=== PATIENT | female | born 1990 | race American Indian/Alaskan Native ===

== ENCOUNTER 2020-07-26 16:05 | Emergency (ER) | payer OTHER ==
[2020-07-26] MEDS ORDERED: IBUPROFEN 800 MG TAB ONE (17:09)
[2020-07-26] MEDS ORDERED: BALANCED SALT IRRIG (BSS) OPHTH SOLN 15 ML ONE ×2 (17:15→17:18)
[2020-07-26] MEDS ORDERED: TETRACAINE 0.5% OPHTH SOLN 4ML ONE (17:17)
[2020-07-26] MEDS ORDERED: FLUORESCEIN 1 MG STRIP OP ONE ×2 (17:17→17:18)
[2020-07-26] MEDS ORDERED: TETRACAINE 0.5% OPHTH SOLN 4ML OU STA (17:18)
[2020-07-26] MEDS ORDERED: IBUPROFEN 800 MG TAB PO ONE (17:30)
--- NOTE | 2020-07-26 17:34 | Emergency Department Report ---
ED Eye Problem HPI - General Chief complaint: Eye Problems Stated complaint: EYE INJURY Time Seen by Provider: 07/26/20 17:18 Source: patient Mode of arrival: Ambulatory Limitations: No Limitations - History of Present Illness MD chief complaint: eye pain, eye injury -: Sudden, hour(s) (2) Location: right eye Place: home If Injury: direct trauma (Was utilizing a workout band that was hinged in the doorway while pulling it lost his traction releasing the band popped her in the right eye resulting in swelling and pain) Eye Symptoms: pain, decreased vision, blurry vision Severity: mild, moderate If Pain, Quality: throbbing Consistency: constant - Related Data Previous Rx's Medication Instructions Recorded Last Taken Type Ketorolac Tromethamine [Acular 1 drop OD Q6HR #1 bottle 07/26/20 Unknown Rx 0.5% Opth Soln] Allergies Allergy/AdvReac Type Severity Reaction Status Date / Time Penicillins AdvReac Swelling Verified 07/26/20 16:35 ED Review of Systems ROS: Stated complaint: EYE INJURY Other details as noted in HPI Comment: All other systems reviewed and negative ED Past Medical Hx - Past Medical History Previous Medical History?: No - Surgical History Past Surgical History?: No - Social History Smoking Status: Never Smoker Substance Use Type: None - Medications Home Medications: Home Medications Medication Instructions Recorded Confirmed Last Taken Type Ketorolac Tromethamine [Acular 1 drop OD Q6HR #1 bottle 07/26/20 Unknown Rx 0.5% Opth Soln] ED Physical Exam - General Limitations: No Limitations General appearance: alert, in no apparent distress - Head Head exam: Present: atraumatic, normocephalic - Eye Eye exam: Present: normal appearance, PERRL, EOMI, conjunctival injection, periorbital swelling, periorbital tenderness - Expanded Eye Exam Expanded Eyelids: Erythema: Right, Swelling: Right Pupils: Regular, Round: Bilateral Sclera/Conjunctival: Normal Inspection: Left, Injection: Right Anterior chamber: Normal Inspection: Bilateral (No hyphema no increased fluorescein uptake) Posterior chamber: Normal Inspection: Bilateral Visual acuity (R) = 20/: 0 (Patient is able to visualize my fingers 2 feet and front of face) Visual acuity (L) = 20/: 25 - ENT ENT exam: Present: normal exam, mucous membranes moist - Neck Neck exam: Present: normal inspection, full ROM - Respiratory Respiratory exam: Present: normal lung sounds bilaterally. Absent: respiratory distress - Cardiovascular Cardiovascular Exam: Present: regular rate, normal rhythm. Absent: systolic murmur, diastolic murmur, rubs, gallop - GI/Abdominal GI/Abdominal exam: Present: soft, normal bowel sounds - Extremities Exam Extremities exam: Present: normal inspection - Back Exam Back exam: Present: normal inspection - Neurological Exam Neurological exam: Present: alert, oriented X3 - Psychiatric Psychiatric exam: Present: normal affect, normal mood - Skin Skin exam: Present: warm, dry, intact, normal color. Absent: rash Critical care attestation.: If time is entered above; I have spent that time in minutes in the direct care of this critically ill patient, excluding procedure time. ED Disposition Clinical Impression: Acute right eye pain, Periorbital contusion of right eye Disposition: DC- TO HOME OR SELFCARE Is pt being admited?: No Does the pt Need Aspirin: No Condition: Stable Instructions: Eye Contusion, [id number], How to Use Cold Therapy, [id number] Prescriptions: Ketorolac Tromethamine [Acular 0.5% Opth Soln] 1 drop OD Q6HR #1 bottle Referrals: JERRY MKCEON MD [Staff Physician] - 3-5 Days MANINDER GARCIA MD [Staff Physician] - 3-5 Days JERRY MTZ MD [Staff Physician] - 3-5 Days
== END 2020-07-26 18:23 | disposition home or self-care (01) ==
LOC: ED 16:05
DX: S05.11XA Contusion of eyeball and orbital tissues, right eye, initial encounter (principal); Z79.899 Other long term (current) drug therapy; X58.XXXA Exposure to other specified factors, initial encounter; Y93.89 Activity, other specified; Y92.89 Other specified places as the place of occurrence of the external cause; Y99.8 Other external cause status
CPT/HCPCS: 99282

== ENCOUNTER 2020-07-29 08:24 | Emergency (ER) | payer MEDICAID ==
[2020-07-29 08:37] VITALS: BP 124/81
--- NOTE | 2020-07-29 09:45 | Emergency Department Report ---
ED Eye Problem HPI - General Chief complaint: Eye Problems Stated complaint: HIT IN EYE Time Seen by Provider: 07/29/20 09:30 Source: patient Mode of arrival: Ambulatory Limitations: No Limitations - History of Present Illness Initial comments: This 30-year-old female who returns to the ED after being evaluated here 3 days ago complaining of continued eye irritation and redness with blurry vision after injury as described per last visit. Patient states that eye is irritated and photosensitive. She states that she has not followed up with the eye doctor yet. She denies vision loss to the eye. Patient states that she has an appointment with the personal development coach Saturday and a few days. chief complaint: eye pain, eye redness If Injury: direct trauma Eye Symptoms: burning, redness, blurry vision Severity: moderate Severity scale (0 -10): 6 Treatments Prior to Arrival: ice - Related Data Patient Tetanus UTD: Yes Previous Rx's Medication Instructions Recorded Last Taken Type Ketorolac Tromethamine [Acular 1 drop OD Q6HR #1 bottle 07/26/20 Unknown Rx 0.5% Opth Soln] Ibuprofen [Motrin] 800 mg PO Q8HR #40 tablet 07/29/20 Unknown Rx Tobramycin 0.3% [Tobrex] 1 drop OP Q8HR #1 bottle 07/29/20 Unknown Rx Allergies Allergy/AdvReac Type Severity Reaction Status Date / Time Penicillins AdvReac Swelling Verified 07/26/20 16:35 ED Review of Systems ROS: Stated complaint: HIT IN EYE Other details as noted in HPI Comment: All other systems reviewed and negative ED Past Medical Hx - Past Medical History Previous Medical History?: No - Social History Smoking Status: Never Smoker Substance Use Type: None - Medications Home Medications: Home Medications Medication Instructions Recorded Confirmed Last Taken Type Ketorolac Tromethamine [Acular 1 drop OD Q6HR #1 bottle 07/26/20 Unknown Rx 0.5% Opth Soln] Ibuprofen [Motrin] 800 mg PO Q8HR #40 tablet 07/29/20 Unknown Rx Tobramycin 0.3% [Tobrex] 1 drop OP Q8HR #1 bottle 07/29/20 Unknown Rx ED Physical Exam - General Limitations: No Limitations - Eye Eye exam: Present: normal appearance, PERRL, EOMI, conjunctival injection. Absent: periorbital swelling, periorbital tenderness Pupils: Present: normal accommodation. Absent: irregular - Expanded Eye Exam Expanded Sclera/Conjunctival: Injection: Right Visual acuity (R) = 20/: 15 (Blurry. Patient was able to visualize finger in front of her eye but was not unable to tell how many fingers were) Visual acuity (L) = 20/: 25 ED Course Vital Signs 07/29/20 08:36 Temperature 99.0 F Pulse Rate 78 Respiratory 17 Rate Blood Pressure 124/81 [Right] O2 Sat by Pulse 100 Oximetry ED Medical Decision Making - Medical Decision Making 30-year-old female presents with right eye conjunctivitis and pain Previous periorbital swelling has resolved. Patient did not have any tenderness to the periorbital or anywhere around the eye. Discussed with patient we will add tobramycin eyedrops. Discussed continue pain eyedrops and Tylenol or Motrin for pain. Discussed to follow-up with the personal development coach and as soon as possible. Discussed if she is having any decrease or vision loss to report to the nearest ED. Patient was reassured and states she will follow up with the personal development coach. Critical care attestation.: If time is entered above; I have spent that time in minutes in the direct care of this critically ill patient, excluding procedure time. ED Disposition Clinical Impression: Conjunctivitis, right eye Disposition: DC-01 TO HOME OR SELFCARE Is pt being admited?: No Does the pt Need Aspirin: No Condition: Stable Instructions: How to Use Eye Drops and Eye Ointments Prescriptions: Ibuprofen [Motrin] 800 mg PO Q8HR #40 tablet Tobramycin 0.3% [Tobrex] 1 drop OP Q8HR #1 bottle Referrals: NAHUM HAND MD [Primary Care Provider] - 3-5 Days [facility] [Provider Group] - 3-5 Days MANINDER GARCIA MD [Staff Physician] - 3-5 Days JOHANNE LEROY MD [Staff Physician] - 3-5 Days Forms: Accompanied Note, Work/School Release Form(ED) Time of Disposition: 09:46
[2020-07-29] MEDS ORDERED: HYDROcodone/ACETAMINOPHEN 5-325 MG TAB PO ONE (10:05)
== END 2020-07-29 10:14 | disposition home or self-care (01) ==
LOC: ED 08:24
DX: H10.31 Unspecified acute conjunctivitis, right eye (principal); Z79.899 Other long term (current) drug therapy
CPT/HCPCS: 99282